=== PATIENT | female | born 2000 | race Hispanic/Latino ===

== ENCOUNTER 2024-09-20 17:19 | Inpatient (IN) | payer SELFPAY ==
[~2024-09-20] VITALS: Ht 154.9 cm; Wt 49.4 kg
[2024-09-20 17:49] VITALS: TEMP 98.3
[2024-09-20] MEDS: SODIUM CHLORIDE 0.9% 1000ML 1,000 ML IV ONE (18:14)
[2024-09-20] MEDS: ONDANSETRON HCL INJ 2MG/ML 2ML 2 MG/ML VIAL IV STA (18:15)
[2024-09-20] MEDS: Morphine 4mg INJECTION 4 MG/ML INJ IV ONE (18:16)
[2024-09-20 18:32] LABS: BASOPHILS % 0.4 % (0.0-1.0); HEMATOCRIT 40.1 % (34.2-44.1); HEMOGLOBIN 13.2 g/dL (12.0-16.0); LYMPHOCYTES # (AUTO) 1.3 (1.0-3.2); LYMPHOCYTES % 26.4 % (18.0-39.1); MEAN CORPUSCULAR HEMOGLOBIN 28.6 pg (28-32); MEAN CORPUSCULAR HGB CONC 32.9 g/dL (31-35); MONOCYTES # (AUTO) 0.4 (0.2-0.8); MONOCYTES % 7.1 % (4.4-11.3); NEUTROPHILS # (AUTO) 3.3 (2.1-6.9); NEUTROPHILS % 65.9 % (38.7-80.0); PLATELET COUNT 260 x10e3/uL (140-360); RED BLOOD COUNT 4.61 x10e6/uL (3.6-5.1); RED CELL DISTRIBUTION WIDTH 12.1 % (11.7-14.4); WHITE BLOOD COUNT 5.07 x10e3/uL (4.8-10.8)
[2024-09-20 18:54] LABS: ALBUMIN 4.2 g/dL (3.5-5.0); ALBUMIN/GLOBULIN RATIO 1.1 (0.8-2.0); ANION GAP 18.8 mmol/L (8-16); BILIRUBIN,TOTAL 3.8 mg/dL (0.2-1.2); CALCIUM 9.8 mg/dL (8.4-10.2); CREATININE, SERUM 0.71 mg/dL (0.57-1.11); POTASSIUM 3.8 mmol/L (3.5-5.1); TOTAL PROTEIN 7.9 g/dL (6.5-8.1)
[2024-09-20 18:57] LABS: LIPASE 24 U/L (8-78)
[2024-09-20] MEDS ORDERED: IOPAMIDOL 370 MG/ML 100 ML INFUS..BTL INJ ONE (20:00)
[2024-09-20 22:50] VITALS: PULSE 67; RESP 18; O2SAT 99
[2024-09-20 23:00] VITALS: PULSE 67; RESP 16
[2024-09-20 23:50] VITALS: BP 124/77; PULSE 68; RESP 18; TEMP 98.3; O2SAT 100
[2024-09-21] VITALS (8 sets, daily range): BP systolic 112–124; BP diastolic 61–77; PULSE 64–96; RESP 16–18; TEMP 97.4–98.3; O2SAT 100
[2024-09-21] MEDS: SODIUM CHLORIDE 0.9% 1000ML 1,000 ML IV SCH (00:03)
[2024-09-21 06:29] LABS: BASOPHILS % 0.4 % (0.0-1.0); EOSINOPHILS % 0.7 % (0.0-6.0); HEMATOCRIT 37.5 % (34.2-44.1); LYMPHOCYTES # (AUTO) 1.5 (1.0-3.2); LYMPHOCYTES % 33.4 % (18.0-39.1); MEAN CORPUSCULAR HEMOGLOBIN 28.7 pg (28-32); MEAN CORPUSCULAR VOLUME 89.7 fL (81-99); MONOCYTES # (AUTO) 0.5 (0.2-0.8); MONOCYTES % 10.3 % (4.4-11.3); NEUTROPHILS # (AUTO) 2.5 (2.1-6.9); PLATELET COUNT 231 x10e3/uL (140-360); RED BLOOD COUNT 4.18 x10e6/uL (3.6-5.1); RED CELL DISTRIBUTION WIDTH 11.9 % (11.7-14.4); WHITE BLOOD COUNT 4.46 x10e3/uL (4.8-10.8)
[2024-09-21 06:52] LABS: ALBUMIN 3.5 g/dL (3.5-5.0); ALBUMIN/GLOBULIN RATIO 1.1 (0.8-2.0); ANION GAP 11.8 mmol/L (8-16); BILIRUBIN,TOTAL 1.6 mg/dL (0.2-1.2); CALCIUM 9.1 mg/dL (8.4-10.2); CREATININE, SERUM 0.69 mg/dL (0.57-1.11); POTASSIUM 3.8 mmol/L (3.5-5.1); TOTAL PROTEIN 6.8 g/dL (6.5-8.1)
[2024-09-21] MEDS: ONDANSETRON HCL INJ 2MG/ML 2ML 2 MG/ML VIAL IV PRN (11:27)
[2024-09-21] MEDS: Morphine 4mg INJECTION 4 MG/ML INJ IV PRN (11:27)
[2024-09-21] MEDS ORDERED: BUPIVACAINE 0.25% 30ML SDV ONE (12:44)
[2024-09-21] MEDS ORDERED: IOPAMIDOL 610MG/1ML 300 MG/ML VIAL IV ONE (12:44)
[2024-09-21] MEDS ORDERED: FENTANYL CITRATE/PF 100MCG/2 ML INJ ONE (13:36)
[2024-09-21] MEDS ORDERED: MIDAZOLAM HCL 2 MG/2 ML VIAL ONE (13:36)
[2024-09-21] MEDS ORDERED: FAMOTIDINE 20 MG/2 ML VIAL IV ONE (13:37)
[2024-09-21] MEDS ORDERED: ROCURONIUM BROMIDE 1 ML IV ONE (13:37)
[2024-09-21] MEDS ORDERED: PROPOFOL IV EMULSION 10 MG/ML 20 ML VIAL ONE (13:37)
[2024-09-21] MEDS ORDERED: LIDOCAINE HCL 2% LOCAL INJ 5 ML SDV VIAL INJ ONE (13:39)
[2024-09-21] MEDS ORDERED: ACETAMINOPHEN 1000 MG/100 ML 100 ML IV ONE (14:08)
[2024-09-21] MEDS: KETOROLAC TROMETHAMINE 30 MG/ML VIAL IV PRN (15:50)
[2024-09-21] MEDS: KETOROLAC TROMETHAMINE 30 MG/ML VIAL ONE (16:19)
[2024-09-22] VITALS (8 sets, daily range): BP systolic 101–123; BP diastolic 65–82; PULSE 73–86; RESP 16–18; TEMP 97.3–98.5; O2SAT 98–100
[2024-09-22] MEDS: HYDROMORPHONE 1MG/1ML INJ IV PRN (00:41)
[2024-09-22 06:38] LABS: BASOPHILS % 0.3 % (0.0-1.0); HEMATOCRIT 35.2 % (34.2-44.1); HEMOGLOBIN 11.2 g/dL (12.0-16.0); LYMPHOCYTES # (AUTO) 1.7 (1.0-3.2); LYMPHOCYTES % 19.2 % (18.0-39.1); MEAN CORPUSCULAR HEMOGLOBIN 28.9 pg (28-32); MEAN CORPUSCULAR HGB CONC 31.8 g/dL (31-35); MONOCYTES # (AUTO) 0.8 (0.2-0.8); MONOCYTES % 9.2 % (4.4-11.3); NEUTROPHILS # (AUTO) 6.4 (2.1-6.9); PLATELET COUNT 226 x10e3/uL (140-360); RED BLOOD COUNT 3.87 x10e6/uL (3.6-5.1); WHITE BLOOD COUNT 8.95 x10e3/uL (4.8-10.8)
[2024-09-22 07:01] LABS: ALBUMIN 3.3 g/dL (3.5-5.0); ALBUMIN/GLOBULIN RATIO 1.2 (0.8-2.0); ANION GAP 14.2 mmol/L (8-16); CALCIUM 8.6 mg/dL (8.4-10.2); CREATININE, SERUM 0.72 mg/dL (0.57-1.11); POTASSIUM 4.2 mmol/L (3.5-5.1)
[2024-09-22] MEDS ORDERED: PROPOFOL IV EMULSION 10 MG/ML 20 ML VIAL ONE (10:35)
[2024-09-22] MEDS ORDERED: ROCURONIUM BROMIDE 2 ML IV ONE (10:39)
[2024-09-22] MEDS ORDERED: FENTANYL CITRATE/PF 100MCG/2 ML INJ ONE (10:40)
[2024-09-22] MEDS ORDERED: SUGAMMADEX SODIUM 200 MG/2 ML VIAL IV ONE (11:14)
[2024-09-22] MEDS ORDERED: IOPAMIDOL 300MG/ML 100 ML INFUS..BTL IV ONE (11:25)
[2024-09-22] MEDS ORDERED: IOPAMIDOL 610MG/1ML 300 MG/ML VIAL IV ONE (11:28)
[2024-09-22] MEDS ORDERED: INDOMETHACIN 50 MG SUPP.RECT RC ONE (11:29)
[2024-09-23] VITALS: BP 119/75; PULSE 82; RESP 18; TEMP 97.5; O2SAT 98
[2024-09-23] MEDS ORDERED: SUCCINYLCHOLINE CHLORIDE 20 MG/ML 10ML VIAL ONE (03:16)
[2024-09-23] MEDS ORDERED: ONDANSETRON HCL INJ 2MG/ML 2ML 2 MG/ML VIAL ONE (03:49)
[2024-09-23] MEDS ORDERED: DEXAMETHASONE SOD PHOS INJ 4 MG/ML SDV ONE (03:49)
[2024-09-23] MEDS ORDERED: ESMOLOL HCL 100MG/10ML 10 MG/ML VIAL ONE (03:51)
[2024-09-23] MEDS ORDERED: GLUCAGON FOR INJ 1 MG VIAL ONE (03:53)
[2024-09-23 04:00] VITALS: BP 119/76; PULSE 90; RESP 18; TEMP 99; O2SAT 99
[2024-09-23 07:56] VITALS: BP 119/73; PULSE 85; RESP 21; TEMP 97.1; O2SAT 100
[2024-09-23 11:41] VITALS: BP 110/73; PULSE 97; RESP 18; TEMP 98.5; O2SAT 97
== END 2024-09-23 12:23 | disposition home or self-care (01) | DRG 418 ==
LOC: ER 18:01 → ERHOLD 22:04 → MED/SURG2 23:36
PROVIDERS: ADMIT Surgery; ATTEND Surgery
PROC: BF131ZZ Fluoroscopy of Gallbladder and Bile Ducts using Low Osmolar Contrast (ICD-10-PCS; 2024-09-21)
PROC: 0FT44ZZ Resection of Gallbladder, Percutaneous Endoscopic Approach (ICD-10-PCS; principal; 2024-09-21 13:48)
PROC: 0FC98ZZ Extirpation of Matter from Common Bile Duct, Via Natural or Artificial Opening Endoscopic (ICD-10-PCS; 2024-09-22)
PROC: BF101ZZ Fluoroscopy of Bile Ducts using Low Osmolar Contrast (ICD-10-PCS; 2024-09-22)
DX: K80.65 Calculus of gallbladder and bile duct with chronic cholecystitis with obstruction (principal); R17 Unspecified jaundice
CPT/HCPCS: 36415; 43260; 74177; 74300; 74328; 76705; 80053; 83690; 84702; 85025; 88304; 94799; 99284; C1766; J0330; J1100; J1171; J1610; J1885; J2003; J2250; J2270; J2405; J2543; J7030; Q9967